=== PATIENT | male | born 1960 ===

== ENCOUNTER 2019-08-17 09:32 | Emergency (ER) | payer OTHER ==
[~2019-08-17] VITALS: Ht 170.2 cm; Wt 87.1 kg
[~2019-08-17 09:32] MED LIST: TUSSI PRES-B L120 M1 PO; ZANTAC150 M3
== END 2019-08-17 12:35 | disposition home or self-care (01) ==
LOC: ER 09:32
DX: K21.9 Gastro-esophageal reflux disease without esophagitis (principal)

== ENCOUNTER → 2019-08-22 | Emergency (ER) | payer OTHER ==
[~2019-08-22] VITALS: Ht 170.2 cm; Wt 69.9 kg
[~2019-08-22] MED LIST changes: +PEPCID AC20 MG
== END | disposition left against medical advice (07) ==
LOC: ER 07:25
DX: Z53.20 Procedure and treatment not carried out because of patient's decision for unspecified reasons (principal)

== ENCOUNTER 2020-11-01 15:13 | Emergency (ER) | payer OTHER ==
[~2020-11-01] VITALS: Ht 170.2 cm; Wt 68.9 kg
[2020-11-01] MEDS ORDERED: CLARITIN5 MG (15:29)
[2020-11-01] MEDS ORDERED: CVS OMEPRAZOLE1 EACH (15:29)
== END 2020-11-01 20:29 | disposition home or self-care (01) ==
LOC: ER 15:13
DX: R53.81 Other malaise (principal); R05 Cough; R19.7 Diarrhea, unspecified; R50.9 Fever, unspecified; R00.2 Palpitations; Z20.822 Contact with and (suspected) exposure to COVID-19

== ENCOUNTER 2020-11-03 12:07 | Outpatient (CLI) | payer OTHER ==
[~2020-11-03 12:07] MED LIST changes: +CLARITIN5 MG; +CVS OMEPRAZOLE1 EACH
== END 2020-11-03 15:57 | disposition home or self-care (01) ==
LOC: ASH CLINIC 12:07
PROVIDERS: ATTEND General Practice
DX: Z23 Encounter for immunization (principal); U07.1 COVID-19